=== PATIENT | female | born 1995 | race Caucasian/White ===

== ENCOUNTER 2021-04-25 23:27 | Inpatient (IN) ==
--- NOTE | 2021-04-26 01:18 | History & Physical Report ---
Date of Service April 26, 2021 Assessment & Plan (1) with 38 completed weeks gestation: (2) SROM (spontaneous rupture of membranes): Plan: admit, expectant management. stadol for pain and epidural on demand. fetus category one. anticipate . History of Present Illness Chief Complaint: contractions Primary Care Provider: NO PCP Patient is a 25yo female, with iup at38 4/7 weeks who presented to labor and delivery for contractions. She was checked and 1.5cm, she walked and then had rom. She will be admitted for labor. uncomplicated. Labs Blood Type A Positive 09/24/20 Antibody Screen NEGATIVE 09/24/20 F Hemoglobin 12.2 g/dL (12.0-16.0) 02/11/21 Hematocrit 37.0 % (37-47) 02/11/21 Mean Corpuscular Volume 93.5 fL (80-100) 09/24/20 Platelet Count 324 K/uL (130-400) 09/24/20 Rubella IgG Antibody Immune (Immune) 09/24/20 Rapid Plasma Reagin Nonreactive (Nonreactive) 09/24/20 Hepatitis B Surface Antigen Neg (Neg) 09/24/20 HIV (1&2) Ab and P24 Ag, 4th Gener Neg (Neg) 09/24/20 Glucose 1 Hour 50 gm Load 140 mg/dl (70-130) H 02/11/21 OB Optional Labs: Chlamydia trachomatis RNA NOT DETECTED (NOT DETECTED) 09/24/20 Neisseria gonorrhoeae RNA NOT DETECTED (NOT DETECTED) 09/24/20 low risk panorama GBS neg Allergies Allergy/AdvReac Type Severity Reaction Status Date / Time No Known Allergies Allergy Verified 04/22/21 11:12 Home Medications Medication Instructions Recorded Confirmed Type rycqcebf-ezd-Ei-FA 1 mg 1 tab PO DAILY 04/25/21 04/25/21 History tablet Patient History Medical History (Reviewed 04/26/21 @ 01:19 EST by Nila Gunn MD, FACOG) Varicella vaccination Surgical History (Reviewed 04/26/21 @ 01:19 EST by Nila Gunn MD, FACOG) H/O wisdom tooth extraction History of orthopedic surgery Family History (Reviewed 04/26/21 @ 01:19 EST by Nila Gunn MD, FACOG) Sister Ovarian cyst Denies family history of Ovarian cancer Prostate cancer Breast cancer Colorectal cancer Social History (Reviewed 04/26/21 @ 01:19 EST by Nila Gunn MD, FACOG) Smoking Status: Never smoker Hx Alcohol Use: No Hx Substance Use: No Preferred Language: Albanian Communication Ability: Effective Blind Lacer Required: No Beliefs That Will Affect Care: None marital status: marital status details: Daquan Goodwin (37) [phone] Current Living Situation: Spouse Current Living Situation Comment: in law current occupational status: employed 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
[2021-04-26] MEDS ORDERED: OXYTOCIN 30 UNITS/500 ML BAG IV PRN ×3 (01:21→16:15)
[2021-04-26] MEDS ORDERED: BUTORPHANOL TARTRATE 1 MG/ML VIAL IV ONE (01:23)
[2021-04-26 02:03] LABS: Hemoglobin 12.7 g/dL (12.0-16.0); Mean Corpuscular Hemoglobin 32.4 pg (25-34); Mean Corpuscular Hgb Conc 33.4 g/dL (32-36); Mean Corpuscular Volume 96.9 fL (80-100); Mean Platelet Volume 10.8 fL (7.4-10.4); Platelet Count 267 K/uL (130-400); RDW Coefficient of Variation 14.4 % (11.5-14.5); RDW Standard Deviation 50.9 fL (36.4-46.3); Red Blood Count 3.92 M/uL (4.2-5.4); White Blood Count 10.51 K/uL (4.8-10.8)
[2021-04-26] MEDS: LACTATED RINGER'S 1,000 ML IV PRN ×3 (02:25→13:40)
[2021-04-26] MEDS ORDERED: SODIUM CHLORIDE 0.9% INJ 10 ML VIAL ONE (04:40)
[2021-04-26] MEDS ORDERED: BUPIVACAINE 0.25% 30 ML VIAL ONE (04:40)
[2021-04-26] MEDS ORDERED: fentaNYL citrate 100 MCG/2 ML VIAL ONE (04:40)
[2021-04-26] MEDS ORDERED: ePHEDrine sulfate 50 MG/ML AMP ONE (04:40)
--- NOTE | 2021-04-26 04:40 | Anesthesiology Consultation ---
Date of Service April 26, 2021 Assessment & Plan (1) Encounter for pre-operative examination: Chart Review Chart Review: Acceptable Risk for Labor Epidural History Height/Weight Height: 5 ft 5 in Weight: 74.843 kg Allergies Allergy/AdvReac Type Severity Reaction Status Date / Time No Known Allergies Allergy Verified 04/22/21 11:12 Medications Home Medications Medication Instructions Recorded Confirmed Last Taken yoknrqmb-kkb-Ex-FA 1 mg 1 tab PO DAILY 04/25/21 04/25/21 Unknown tablet Active Medications Generic Name Dose Route Start Last Admin Trade Name Freq PRN Reason Stop Dose Admin Lactated Ringer's 1,000 mls @ 125 mls/hr 04/26/21 01:21 EST 04/26/21 04:37 Lr IV 04/28/21 01:20 999 mls/hr .Q8H PRN Infusion L&D Protocol Protocol Past Medical History Medical History Varicella vaccination Past Family History Family History Sister Ovarian cyst Denies family history of Ovarian cancer Prostate cancer Breast cancer Colorectal cancer Past Surgical History Surgical History H/O wisdom tooth extraction History of orthopedic surgery Social History Smoking Status: Never smoker Hx Alcohol Use: No Hx Substance Use: No Physical Exam Vital Signs Last Vital Signs Temp 36.7 C 04/26/21 04:35 Pulse 88 04/26/21 01:28 EST BP 122/81 04/26/21 01:28 EST Testing Laboratory Results 04/26/21 01:46 EST
[2021-04-26] MEDS ORDERED: fentaNYL 2MCG/ML ROPIVACAINE 1.25MG/ML 100 ML BAG EPI ONE (04:41)
[2021-04-26] MEDS ORDERED: NALOXONE HCL 0.4 MG/1 ML VIAL/CARP IV PRN (05:17)
[2021-04-26] MEDS ORDERED: NALOXONE HCL 1 MG in SODIUM CHLORIDE 0.9% 1000ML 1,000 ML IV PRN (05:17)
[2021-04-26] MEDS ORDERED: ONDANSETRON INJ 2 MG/ML 2 ML VIAL IV PRN (05:17)
[2021-04-26] MEDS ORDERED: fentaNYL 2MCG/ML ROPIVACAINE 1.25MG/ML 100 ML BAG EPI PRN (05:17)
[2021-04-26] MEDS ORDERED: ePHEDrine sulfate 50 MG/ML AMP IV PRN (05:17)
--- NOTE | 2021-04-26 06:29 | Labor Progress Brief Note ---
Date of Service April 26, 2021 Subjective comfortable with epidural Assessment & Plan (1) SROM (spontaneous rupture of membranes): Plan: plan to augment with pitocin. has made slow change. fetus category one. Admission and Anticipated Discharge Date Admission Date: April 26, 2021 Physical Exam Physical Exam: cx--3/50/-2 toco--q 2-4, some spacing after epidural efm--150s with mod variability, accels to 170s, no decels Results & Data ([facility]) Vital Signs (Past 12 Hours) Vital Signs Temp Pulse Resp BP Pulse Ox 04/26/21 06:24 98 H 89 L 04/26/21 06:22 36.4 C L 18 04/26/21 06:19 108 H 90 04/26/21 06:14 101 H 94 04/26/21 06:13 108 H 108/63 93 04/26/21 06:09 111 H 93 04/26/21 06:07 113 H 92 04/26/21 06:04 36.7 C 99 H 18 91 04/26/21 05:59 104 H 90 04/26/21 05:57 112 H 94/53 L 93 04/26/21 05:55 102 H 106/60 04/26/21 05:54 103 H 94 04/26/21 05:53 101 H 103/61 04/26/21 05:52 101 H 93 04/26/21 05:51 111 H 97/53 L 04/26/21 05:49 110 H 101/55 L 92 04/26/21 05:47 107 H 97/53 L 93 04/26/21 05:45 99 H 18 100/55 L 04/26/21 05:44 101 H 94 04/26/21 05:43 102 H 97/52 L 04/26/21 05:41 104 H 96/51 L 93 04/26/21 05:39 104 H 104/60 92 04/26/21 05:37 107 H 99/56 L 04/26/21 05:36 105 H 93 04/26/21 05:35 96 H 107/60 04/26/21 05:33 101 H 101/57 L 92 04/26/21 05:31 99 H 106/60 04/26/21 05:30 98 H 18 93 04/26/21 05:29 102 H 100/58 L 04/26/21 05:28 100 H 92 04/26/21 05:27 94 H 100/58 L 04/26/21 05:25 100 H 18 101/57 L 93 04/26/21 05:23 92 H 111/62 90 04/26/21 05:21 88 107/60 04/26/21 05:20 18 04/26/21 05:19 90 105/62 92 04/26/21 05:18 97 H 97 04/26/21 05:17 86 108/65 04/26/21 05:15 88 18 105/66 04/26/21 05:14 79 94 04/26/21 05:13 79 111/60 94 04/26/21 05:11 93 H 104/67 04/26/21 05:08 97 H 100/53 L 100 04/26/21 05:07 90 90 04/26/21 05:03 82 91 04/26/21 05:02 90 107/55 L 04/26/21 04:58 88 92 04/26/21 04:53 89 90 04/26/21 04:35 36.7 C 04/26/21 01:28 EST 88 122/81 04/26/21 01:15 EDT 36.4 C L 04/25/21 23:34 95 H 120/72 Coding Level of Care Code None Diagnoses SROM (spontaneous rupture of membranes)
--- NOTE | 2021-04-26 11:03 | Labor Progress Brief Note ---
Date of Service April 26, 2021 Subjective comfortable Assessment & Plan (1) SROM (spontaneous rupture of membranes): Plan: cx has thinned some but no significant increase in dilation. Continue pitocin. Recheck in a couple of hours, if no further change, plan iupc. fetus category one. Admission and Anticipated Discharge Date Admission Date: April 26, 2021 Physical Exam Physical Exam: cx--/-2 toco--q2-3, pit at 5 efm--1250s with mod variability, accels present , no decels Results & Data ([facility]) Vital Signs (Past 12 Hours) Vital Signs Temp Pulse Resp BP Pulse Ox 04/26/21 10:56 113 H 91 04/26/21 10:51 112 H 93 04/26/21 10:46 105 H 89 L 04/26/21 10:43 115 H 117/59 L 04/26/21 10:41 107 H 89 L 04/26/21 10:36 102 H 89 L 04/26/21 10:31 106 H 89 L 04/26/21 10:26 107 H 89 L 04/26/21 10:21 119 H 90 04/26/21 10:16 113 H 89 L 04/26/21 10:14 109 H 111/59 L 04/26/21 10:11 107 H 89 L 04/26/21 10:06 103 H 90 04/26/21 10:01 113 H 91 04/26/21 09:56 111 H 90 04/26/21 09:51 102 H 90 04/26/21 09:46 111 H 89 L 04/26/21 09:44 110 H 102/54 L 04/26/21 09:41 112 H 91 04/26/21 09:36 111 H 90 04/26/21 09:31 104 H 89 L 04/26/21 09:30 18 04/26/21 09:26 117 H 91 04/26/21 09:21 111 H 90 04/26/21 09:16 110 H 90 04/26/21 09:13 114 H 115/54 L 04/26/21 09:11 106 H 88 L 04/26/21 09:06 111 H 90 04/26/21 09:01 108 H 88 L 04/26/21 09:00 37.0 C 20 04/26/21 08:56 105 H 88 L 04/26/21 08:51 110 H 88 L 04/26/21 08:46 102 H 87 L 04/26/21 08:45 104 H 110/51 L 04/26/21 08:41 104 H 88 L 04/26/21 08:36 101 H 88 L 04/26/21 08:31 104 H 88 L 04/26/21 08:30 18 04/26/21 08:26 98 H 89 L 04/26/21 08:21 102 H 88 L 04/26/21 08:16 105 H 89 L 04/26/21 08:15 101 H 104/52 L 04/26/21 08:11 99 H 89 L 04/26/21 08:06 101 H 89 L 04/26/21 08:01 91 H 90 04/26/21 08:00 20 04/26/21 07:56 113 H 92 04/26/21 07:51 111 H 90 04/26/21 07:46 116 H 90 04/26/21 07:42 112 H 104/57 L 04/26/21 07:34 108 H 91 04/26/21 07:30 20 04/26/21 07:29 106 H 89 L 04/26/21 07:28 113 H 103/59 L 04/26/21 07:24 116 H 92 04/26/21 07:19 114 H 90 04/26/21 07:15 20 04/26/21 07:14 114 H 90 04/26/21 07:13 36.7 C 111 H 20 107/55 L 04/26/21 07:09 111 H 92 04/26/21 07:04 104 H 93 04/26/21 06:59 119 H 93 04/26/21 06:58 112 H 108/60 04/26/21 06:54 113 H 93 04/26/21 06:49 106 H 92 04/26/21 06:44 99 H 91 04/26/21 06:42 100 H 106/55 L 04/26/21 06:39 113 H 91 04/26/21 06:34 108 H 91 04/26/21 06:31 108 H 92 04/26/21 06:29 103 H 91 04/26/21 06:27 108 H 102/55 L 04/26/21 06:24 98 H 89 L 04/26/21 06:22 36.4 C L 18 04/26/21 06:19 108 H 90 04/26/21 06:14 101 H 94 04/26/21 06:13 108 H 108/63 93 04/26/21 06:09 111 H 93 04/26/21 06:07 113 H 92 04/26/21 06:04 36.7 C 99 H 18 91 04/26/21 05:59 104 H 90 04/26/21 05:57 112 H 94/53 L 93 04/26/21 05:55 102 H 106/60 04/26/21 05:54 103 H 94 04/26/21 05:53 101 H 103/61 04/26/21 05:52 101 H 93 04/26/21 05:51 111 H 97/53 L 04/26/21 05:49 110 H 101/55 L 92 04/26/21 05:47 107 H 97/53 L 93 04/26/21 05:45 99 H 18 100/55 L 04/26/21 05:44 101 H 94 04/26/21 05:43 102 H 97/52 L 04/26/21 05:41 104 H 96/51 L 93 04/26/21 05:39 104 H 104/60 92 04/26/21 05:37 107 H 99/56 L 04/26/21 05:36 105 H 93 04/26/21 05:35 96 H 107/60 04/26/21 05:33 101 H 101/57 L 92 04/26/21 05:31 99 H 106/60 04/26/21 05:30 98 H 18 93 04/26/21 05:29 102 H 100/58 L 04/26/21 05:28 100 H 92 04/26/21 05:27 94 H 100/58 L 04/26/21 05:25 100 H 18 101/57 L 93 04/26/21 05:23 92 H 111/62 90 04/26/21 05:21 88 107/60 04/26/21 05:20 18 04/26/21 05:19 90 105/62 92 04/26/21 05:18 97 H 97 04/26/21 05:17 86 108/65 04/26/21 05:15 88 18 105/66 04/26/21 05:14 79 94 04/26/21 05:13 79 111/60 94 04/26/21 05:11 93 H 104/67 04/26/21 05:08 97 H 100/53 L 100 04/26/21 05:07 90 90 04/26/21 05:03 82 91 04/26/21 05:02 90 107/55 L 04/26/21 04:58 88 92 04/26/21 04:53 89 90 04/26/21 04:35 36.7 C 04/26/21 01:28 EST 88 122/81 04/26/21 01:15 EDT 36.4 C L Coding Level of Care Code None Diagnoses SROM (spontaneous rupture of membranes)
--- NOTE | 2021-04-26 13:21 | Labor Progress Brief Note ---
Date of Service April 26, 2021 Subjective comfortable Assessment & Plan (1) SROM (spontaneous rupture of membranes): Plan: Making change, continue current management. fetus category one. Admission and Anticipated Discharge Date Admission Date: April 26, 2021 Physical Exam Physical Exam: cx--7/100/-1` toco--q2-3, pit at 5 efm--120s with mod variability, accels present , occasional early decels Results & Data ([facility]) Vital Signs (Past 12 Hours) Vital Signs Temp Pulse Resp BP Pulse Ox 04/26/21 13:16 116 H 91 04/26/21 13:15 112 H 114/54 L 04/26/21 13:11 110 H 91 04/26/21 13:06 111 H 91 04/26/21 13:01 114 H 90 04/26/21 12:56 112 H 90 04/26/21 12:51 108 H 91 04/26/21 12:49 36.8 C 20 04/26/21 12:46 110 H 91 04/26/21 12:43 113 H 115/59 L 04/26/21 12:41 113 H 89 L 04/26/21 12:36 114 H 90 04/26/21 12:31 115 H 90 04/26/21 12:26 109 H 90 04/26/21 12:21 111 H 90 04/26/21 12:16 109 H 90 04/26/21 12:11 111 H 90 04/26/21 12:06 107 H 91 04/26/21 12:01 104 H 91 04/26/21 12:00 18 04/26/21 11:56 106 H 90 04/26/21 11:51 110 H 90 04/26/21 11:46 107 H 90 04/26/21 11:45 110 H 109/56 L 04/26/21 11:41 109 H 91 04/26/21 11:36 116 H 91 04/26/21 11:31 106 H 89 L 04/26/21 11:30 18 04/26/21 11:26 107 H 89 L 04/26/21 11:21 112 H 90 04/26/21 11:16 110 H 89 L 04/26/21 11:13 111 H 119/59 L 04/26/21 11:11 113 H 90 04/26/21 11:06 121 H 90 04/26/21 11:01 114 H 90 04/26/21 11:00 37.1 C 20 04/26/21 10:56 113 H 91 04/26/21 10:51 112 H 93 04/26/21 10:46 105 H 89 L 04/26/21 10:43 115 H 117/59 L 04/26/21 10:41 107 H 89 L 04/26/21 10:36 102 H 89 L 04/26/21 10:31 106 H 89 L 04/26/21 10:30 18 04/26/21 10:26 107 H 89 L 04/26/21 10:21 119 H 90 04/26/21 10:16 113 H 89 L 04/26/21 10:14 109 H 111/59 L 04/26/21 10:11 107 H 89 L 04/26/21 10:06 103 H 90 04/26/21 10:01 113 H 91 04/26/21 10:00 18 04/26/21 09:56 111 H 90 04/26/21 09:51 102 H 90 04/26/21 09:46 111 H 89 L 04/26/21 09:44 110 H 102/54 L 04/26/21 09:41 112 H 91 04/26/21 09:36 111 H 90 04/26/21 09:31 104 H 89 L 04/26/21 09:30 18 04/26/21 09:26 117 H 91 04/26/21 09:21 111 H 90 04/26/21 09:16 110 H 90 04/26/21 09:13 114 H 115/54 L 04/26/21 09:11 106 H 88 L 04/26/21 09:06 111 H 90 04/26/21 09:01 108 H 88 L 04/26/21 09:00 37.0 C 20 04/26/21 08:56 105 H 88 L 04/26/21 08:51 110 H 88 L 04/26/21 08:46 102 H 87 L 04/26/21 08:45 104 H 110/51 L 04/26/21 08:41 104 H 88 L 04/26/21 08:36 101 H 88 L 04/26/21 08:31 104 H 88 L 04/26/21 08:30 18 04/26/21 08:26 98 H 89 L 04/26/21 08:21 102 H 88 L 04/26/21 08:16 105 H 89 L 04/26/21 08:15 101 H 104/52 L 04/26/21 08:11 99 H 89 L 04/26/21 08:06 101 H 89 L 04/26/21 08:01 91 H 90 04/26/21 08:00 20 04/26/21 07:56 113 H 92 04/26/21 07:51 111 H 90 04/26/21 07:46 116 H 90 04/26/21 07:42 112 H 104/57 L 04/26/21 07:34 108 H 91 04/26/21 07:30 20 04/26/21 07:29 106 H 89 L 04/26/21 07:28 113 H 103/59 L 04/26/21 07:24 116 H 92 04/26/21 07:19 114 H 90 04/26/21 07:15 20 04/26/21 07:14 114 H 90 04/26/21 07:13 36.7 C 111 H 20 107/55 L 04/26/21 07:09 111 H 92 04/26/21 07:04 104 H 93 04/26/21 06:59 119 H 93 04/26/21 06:58 112 H 108/60 04/26/21 06:54 113 H 93 04/26/21 06:49 106 H 92 04/26/21 06:44 99 H 91 04/26/21 06:42 100 H 106/55 L 04/26/21 06:39 113 H 91 04/26/21 06:34 108 H 91 04/26/21 06:31 108 H 92 04/26/21 06:29 103 H 91 04/26/21 06:27 108 H 102/55 L 04/26/21 06:24 98 H 89 L 04/26/21 06:22 36.4 C L 18 04/26/21 06:19 108 H 90 04/26/21 06:14 101 H 94 04/26/21 06:13 108 H 108/63 93 04/26/21 06:09 111 H 93 04/26/21 06:07 113 H 92 04/26/21 06:04 36.7 C 99 H 18 91 04/26/21 05:59 104 H 90 04/26/21 05:57 112 H 94/53 L 93 04/26/21 05:55 102 H 106/60 04/26/21 05:54 103 H 94 04/26/21 05:53 101 H 103/61 04/26/21 05:52 101 H 93 04/26/21 05:51 111 H 97/53 L 04/26/21 05:49 110 H 101/55 L 92 04/26/21 05:47 107 H 97/53 L 93 04/26/21 05:45 99 H 18 100/55 L 04/26/21 05:44 101 H 94 04/26/21 05:43 102 H 97/52 L 04/26/21 05:41 104 H 96/51 L 93 04/26/21 05:39 104 H 104/60 92 04/26/21 05:37 107 H 99/56 L 04/26/21 05:36 105 H 93 04/26/21 05:35 96 H 107/60 04/26/21 05:33 101 H 101/57 L 92 04/26/21 05:31 99 H 106/60 04/26/21 05:30 98 H 18 93 04/26/21 05:29 102 H 100/58 L 04/26/21 05:28 100 H 92 04/26/21 05:27 94 H 100/58 L 04/26/21 05:25 100 H 18 101/57 L 93 04/26/21 05:23 92 H 111/62 90 04/26/21 05:21 88 107/60 04/26/21 05:20 18 04/26/21 05:19 90 105/62 92 04/26/21 05:18 97 H 97 04/26/21 05:17 86 108/65 04/26/21 05:15 88 18 105/66 04/26/21 05:14 79 94 04/26/21 05:13 79 111/60 94 04/26/21 05:11 93 H 104/67 04/26/21 05:08 97 H 100/53 L 100 04/26/21 05:07 90 90 04/26/21 05:03 82 91 04/26/21 05:02 90 107/55 L 04/26/21 04:58 88 92 04/26/21 04:53 89 90 04/26/21 04:35 36.7 C 04/26/21 01:28 EST 88 122/81 Coding Level of Care Code None Diagnoses SROM (spontaneous rupture of membranes)
[2021-04-26] MEDS ORDERED: NURSING L&D Epidural Breakthrough Pain Update ONE (14:08)
[2021-04-26] MEDS ORDERED: SUPERCREAM 0.870% 15 GM JAR EXT PRN (16:15)
[2021-04-26] MEDS ORDERED: bisacodyL 10 MG SUPP PR PRN (16:15)
[2021-04-26] MEDS ORDERED: ACETAMINOPHEN 325 MG TAB PO PRN (16:15)
[2021-04-26] MEDS ORDERED: BENZOCAINE 20% AER SPR 82.5 GM CAN EXT PRN (16:15)
[2021-04-26] MEDS ORDERED: DIPHTHERIA/TETANUS/PERTUSSIS 0.5 ML SYR/VIAL IM ONE (16:15)
[2021-04-26] MEDS ORDERED: HYDROCORTISONE ACETATE 25 MG SUPP PR PRN (16:15)
--- NOTE | 2021-04-26 16:20 | Delivery Summary ---
Vaginal Delivery Summary Date of Service April 26, 2021 Vaginal Delivery Summary and 2nd Degree LAC Pre-operative Diagnosis: at 38 4/7 weeks srom and labor Post-operative Diagnosis: same Procedure: epidural second degree laceration and periclitoral laceration and repair EBL: 400cc Anesthesia: epidural Procedure: The patient presented to labor and delivery with contractions. During observation she had srom for clear fluid. She then underwent an epidural and progressed spontaneously to c/c/+2. The patient pushed for about 45 minutes to deliver a viable female in reji position, compound presentation with hand. The nose and mouth were bulb suctioned on the perineum and the rest of the was then delivered without difficulty through a loose nuchal cord. The baby was vigorous. The nose and mouth were again bulb suctioned and the infant was placed in the maternal abdomen for drying and attention. Cord was clamped and cut at one minute of life. Cord blood and segment obtained. Placenta delivered spontaneous, intact with a three vessel cord. Cervix/sulci/rectum were intact. A second degree perineal laceration and periclitoral laceration was repaired in the normal standard fashion. Hemostasis obtained with dilute pitocin and fundal massage. Apgars were 8/9. Mother and baby doing well at the end of the delivery. [facility] Vaginal Delivery Charge Delivery Type Details: and 2nd Degree LAC
--- NOTE | 2021-04-26 17:12 | Anesthesia Procedure Note ---
Date of Service April 26, 2021 Anesthesia Post Epidural Note Vital Signs Vital Signs: Temp Pulse Resp BP Pulse Ox 36.4 C L 106 H 20 120/71 91 04/26/21 14:00 04/26/21 17:01 04/26/21 14:30 04/26/21 17:01 04/26/21 16:01 Notes Mental Status: alert / awake / arousable and participated in evaluation Patient Amnestic to Procedure: Yes Nausea / Vomiting: adequately controlled Pain: adequately controlled Airway Patency, RR, SpO2: stable & adequate BP & HR: stable & adequate Hydration State: stable & adequate Neuraxial Anesthesia: was administered and sensory block is resolving Anesthetic Complications: no major complications apparent and Pt Satisfied with anesthetic care Epidural: Removed without complications and With tip intact
[2021-04-26] MEDS: IBUPROFEN 600 MG TAB PO PRN ×2 (17:21→23:22)
[2021-04-26] MEDS: DOCUSATE SODIUM 100 MG CAP PO SCH (21:24)
[2021-04-27] MEDS: IBUPROFEN 600 MG TAB PO PRN ×3 (03:41→22:08)
--- NOTE | 2021-04-27 06:15 | Obstetrical Progress Note ---
Date of Service <Juan Alberto Yoon DO - Last Filed: 04/27/21 07:32> April 27, 2021 Assessment & Plan <Juan Alberto Yoon DO - Last Filed: 04/27/21 07:32> (1) Encounter for care and examination after delivery: 25 yo post op day 1 from vaginal delivery, doing well. -Continue routine post care. - vital sings reviewed and WNL. (Tmax 36.7) -Blood type A+, GBS -, Rubella Immune -Encourage ambulation, monitor and control pain with Motrin, tylenol PRN, resume regular diet, monitor lochia. -encourage breast feeding. <Nila Gunn MD, FACOG - Last Filed: 04/27/21 07:34> (1) Encounter for care and examination after delivery: Subjective <Juan Alberto Yoon DO - Last Filed: 04/27/21 07:32> Ambulation: ambulating normally Voiding: no voiding problems Passing Gas:: Yes Diet Tolerance:: regular diet Lochia:: Moderate Feeding Type:: breast feeding Current Pain Level(1-10): 0 (Just crampy. ) Review of Systems Denies fever, chills, sweats Denies shortness of breath, difficulty breathing, chest pain, palpitations, chest pressure. Denies breast pain. Denies dysuria. Denies headache or changes in vision Physical Exam <Juan Alberto Yoon DO - Last Filed: 04/27/21 07:32> General: Alert, oriented. No acute distress. Cardiac: Regular rate and rhythm, no murmurs/rubs/gallops. Respiratory: Clear to auscultation bilaterally a/p, no wheezes/rales/rhonchi. No increased work of breathing. Symmetrical chest rise. No respiratory distress. Abdomen: Soft, nontender, nondistended. Bowel sounds present. Uterus: Uterine fundus firm, palpable 2 cm below umbilicus. Lower Extremities: No lower extremity edema or swelling. No deep calf pain. Jordana's negative bilaterally Results & Data ([facility]) <Juan Alberto Yoon DO - Last Filed: 04/27/21 07:32> Vital Signs (Past 12 Hours) Vital Signs Temp Pulse Pulse Resp BP BP Pulse Ox 04/27/21 03:00 36.5 C 94 H 16 111/68 96 04/26/21 23:15 36.6 C 105 H 20 109/71 96 04/26/21 18:35 36.7 C 102 H 18 113/72 97 04/26/21 18:16 112 H 117/77 <Nila Gunn MD, FACOG - Last Filed: 04/27/21 07:34> Co-Signing Physician Notes Resident Physician Supervision Note: I interviewed and examined the patient. Discussed with Dr. Yoon and agree with findings and plan as documented in the note. Any exceptions or clarifications are listed here: Doing well. Routine care. Documented By: Nila Gunn MD, FACOG Resident Activity Tracking <Juan Alberto Yoon DO - Last Filed: 04/27/21 07:32> Resident Involvement: Resident Care Provided Care Provided: OB Delivery
[2021-04-27 06:54] LABS: Hematocrit (blood only) 34.5 % (37-47); Hemoglobin 11.4 g/dL (12.0-16.0)
[2021-04-27] MEDS: PRENATAL VITAMIN 1 TAB PO SCH (09:53)
[2021-04-27] MEDS: DOCUSATE SODIUM 100 MG CAP PO SCH ×2 (09:53→22:08)
[2021-04-27] MEDS ORDERED: bisacodyL 5 MG TABEC PO SCH (20:00)
[2021-04-28] MEDS: IBUPROFEN 600 MG TAB PO PRN ×2 (06:26→11:41)
--- NOTE | 2021-04-28 06:44 | Obstetrical Progress Note ---
Date of Service <Juan Alberto Yoon DO - Last Filed: 04/28/21 08:27> April 28, 2021 Assessment & Plan <Juan Alberto Yoon DO - Last Filed: 04/28/21 08:27> (1) Encounter for care and examination after delivery: 25 yo post op day 1 from vaginal delivery, doing well. -Continue routine post care. - vital sings reviewed and WNL. (Tmax 37.4) -Blood type A+, GBS -, Rubella Immune -Encourage ambulation, recommended control pain with Motrin, tylenol PRN. -encourage breast feeding. -Discussed discharge with patient, patient will follow up in outpatient OB clinic. <Laith Reilly MD - Last Filed: 04/28/21 08:30> (1) Encounter for care and examination after delivery: Subjective <Juan Alberto Yoon DO - Last Filed: 04/28/21 08:27> Ambulation: ambulating normally Voiding: no voiding problems Passing Gas:: Yes Diet Tolerance:: regular diet Lochia:: Small Feeding Type:: breast feeding Current Pain Level(1-10): 0 Review of Systems Denies fever, chills, sweats Denies shortness of breath, difficulty breathing, chest pain, palpitations, chest pressure. Denies breast pain. Denies dysuria. Denies headache or changes in vision Physical Exam <Juan Alberto Yoon DO - Last Filed: 04/28/21 08:27> General: Alert, oriented. No acute distress. Cardiac: Regular rate and rhythm, no murmurs/rubs/gallops. Respiratory: Clear to auscultation bilaterally a/p, no wheezes/rales/rhonchi. No increased work of breathing. Symmetrical chest rise. No respiratory distress. Abdomen: Soft, nontender, nondistended. Bowel sounds present. Uterus: Uterine fundus firm, palpable 2 cm below umbilicus. Lower Extremities: No lower extremity edema or swelling. No deep calf pain. Jordana's negative bilaterally Results & Data ([facility]) <Juan Alberto Yoon DO - Last Filed: 04/28/21 08:27> Vital Signs (Past 12 Hours) Vital Signs Temp Pulse Resp BP Pulse Ox 04/27/21 23:50 37.0 C 97 H 18 111/74 92 04/27/21 20:15 37.0 C 106 H 18 122/79 98 <Laith Reilly MD - Last Filed: 04/28/21 08:30> Co-Signing Physician Notes Patient seen and evaluated and agree with the above findings and plan. Stable for discharge Resident Activity Tracking <Juan Alberto Yoon DO - Last Filed: 04/28/21 08:27> Resident Involvement: Resident Care Provided Care Provided: OB Delivery
[2021-04-28] MEDS: DOCUSATE SODIUM 100 MG CAP PO SCH (08:08)
[2021-04-28] MEDS: PRENATAL VITAMIN 1 TAB PO SCH (08:08)
== END 2021-04-28 12:15 | disposition home or self-care (01) | DRG 807 ==
LOC: OPB 23:27 → 4S1 23:29 → 4S2 04-26 18:51